=== PATIENT | female | born 1975 | race Caucasian/White ===

== ENCOUNTER 2018-01-15 12:05 | Emergency (ER) | payer BC, OTHER ==
[~2018-01-15] VITALS: Ht 165.1 cm; Wt 62.0 kg
[2018-01-15 12:09] VITALS: TEMP 36.8; Ht 165.1 cm; Wt 62.0 kg
[2018-01-15] MEDS ORDERED: CITA20TA9 PO (12:24)
[2018-01-15] MEDS ORDERED: CETI10TA84 PO (12:24)
[2018-01-15] MEDS ORDERED: XYLOCAINE 1%/SOD BICARB 20 ML VIAL INFIL ONE (12:30)
--- NOTE | 2018-01-15 12:47 | DIAGNOSTIC IMAGING REPORT ---
RIGHT GREAT TOE 3 VIEWS CLINICAL HISTORY: Right great toe pain. Trauma. COMPARISON: None. DISCUSSION: There is an overlying bandage obscuring the fine bony detail. No fractures are visualized. There are no dislocations. No radiopaque foreign bodies are visualized. IMPRESSION: 1. No evidence of acute fracture or dislocation 2. No radiopaque foreign bodies identified. Electronically signed by: Zackary Dale M.D. 01/15/2018 12:46 PM Dictated Date/Time: 01/15/2018 12:45 PM
[2018-01-15] MEDS ORDERED: CEPH500C PO (13:13)
[2018-01-15] MEDS ORDERED: DIPHTHERIA/TETANUS/PERTUSSIS 0.5 ML SYR/VIAL IM. ONE (13:15)
[2018-01-15 14:05] VITALS: BP 125/82; PULSE 79; O2SAT 96
--- NOTE | 2018-01-15 16:22 | EMERGENCY ROOM VISIT NOTE ---
ED Visit Note First contact with patient: 12:12 Chief complaint: Right great toe laceration HPI: This 42-year-old white female presents for evaluation of a laceration on the dorsum of her right great toe. The patient was lifting a blender helper when it accidentally dropped this morning. He landed on her great toe. Bleeding was controlled with pressure. They deny any numbness, tingling, or loss of motion. No other complaints. Tetanus is believed to be up-to-date. Pain is 4/10. A male central sterile supply technician accompanies her today. Supplemental sheet was reviewed and signed. Previous surgeries: None Medical history: Seasonal allergies and depression Current Medications: Celexa and Zyrtec Allergies: NKDA Tetanus: Greater than 10 years Family History: Noncontributory Social History: Employed. No tobacco use. REVIEW OF SYSTEM: HEENT: No dizziness, visual problems, hearing loss, or tinnitus. There is no difficulty swallowing and no oral lesions are present. PULMONARY: No cough, shortness of breath, sputum production or hemoptysis. CARDIOVASCULAR: No chest pain, palpitations, shortness of breath or peripheral edema. GASTROINTESTINAL: No diarrhea, constipation, nausea, vomiting, or abdominal pain. GENITOURINARY: No dysuria, frequency, urgency or nocturia. NEUROLOGIC: No weakness, muscle tenderness, epilepsy or history of neurological problems. MUSCULOSKELETAL: No history of joint tenderness/swelling. SKIN: No rashes or lesions. ENDOCRINE: No history of diabetes, thyroid disorders, or abnormal hair growth. Physical Exam: Vitals: Afebrile. Reviewed and found in patient's chart General: Well-developed, well-nourished, middle-aged white female, in no acute distress. Obvious discomfort. They are sitting on the bed. Alert and oriented. Skin: Warm and dry with good turgor. No rashes. No ecchymosis or erythema. The patient is not diaphoretic. No abrasions. The patient has a 1.5 cm laceration present over the dorsal/lateral aspect of the right great toe. It is just proximal to the IP joint. Bleeding is controlled. No nail involvement. Musculoskeletal: Patient has intact motor function of the great toe for plantar flexion and dorsiflexion. Strength is 4+/5 for resisted dorsiflexion. Neurologic: Gross sensation is intact across the great toe by soft touch. Capillary refill is equal to the other digits. Data: Radiographic imaging obtained today of the right great toe was reviewed by me and read by radiology. No evidence for fracture or retained foreign body. Impression: Right great toe 1.5 cm laceration with tendon exposure Procedure: Informed oral consent was obtained for repair. Great toe was prepped with Betadine and draped with a sterile towel. Area was anesthetized using 5 mL 1% plain buffered lidocaine in a digital block. Digit tourniquet was applied. This was in place for approximately 10-12 minutes. Thorough inspection was performed. She has exposed the extensor tendon but I do not see significant violation or joint space disruption. Wound was irrigated using normal sterile saline under jet spray lavage. Wound was closed using 5-0 nylon. Excellent wound edge approximation was achieved. Hemostasis was achieved. Plan: Patient was educated regarding today's findings. Conservative care measures were discussed. Tetanus was updated using Adacel 0.5 mL IM. Cleanse the wound daily with soap and water and reapply a small amount of bacitracin. Ice and elevate intermittently as needed for discomfort. Tylenol and ibuprofen every 6 hours as needed for pain. Wound care handout was provided. Sutures out in 12 days. She may shower. Avoid soaking or swimming for two weeks. Prescription was provided for Keflex 500 mg 3 times daily 5 days as a prophylaxis against infection due to the tendon exposure. Return to the ER for any acute changes or signs of infection. She was reassured that I do not suspect fracture or joint violation. Current/Historical Medications Scheduled Cephalexin Monohydrate (Keflex), 500 MG PO TID Cetirizine (Zyrtec), 10 MG PO DAILY Citalopram Hydrobromide (Celexa), 1 TAB PO DAILY Allergies Coded Allergies: No Known Allergies (Unverified , 01/15/18) Vital Signs Date Time Temp Pulse Resp B/P (MAP) Pulse Ox O2 Delivery O2 Flow Rate FiO2 01/15/18 14:05 79 16 125/82 96 01/15/18 12:09 36.8 77 16 120/84 99 Medications Administered Medications (Trade) Dose Ordered Sig/Robin Route Start Time Stop Time Status Last Admin Dose Admin Diphtheria/ Pertussis/Tetanus Vacc (Adacel Inj) 0.5 ml ONCE ONCE IM. 01/15/18 13:15 01/15/18 13:16 DC 01/15/18 13:54 0.5 ML Departure Information Impression Primary Impression: Laceration of great toe of right foot Dispostion Home / Self-Care Prescriptions Cephalexin Monohydrate (Keflex) 500 Mg Cap 500 MG PO TID, #15 CAP Prov: Chetan Kam,P.A. 01/15/18 Forms HOME CARE DOCUMENTATION FORM, Days to leave dressing on : 1 Clean wound with;: soap and water Number of times/day to clean wound: 2 Coat wound with: antibiotic ointment Suture removal in how many days: 12 MOTRIN USE, TYLENOL USE, WOUND CARE INSTRUCTIONS, IMPORTANT VISIT INFORMATION Patient Instructions My [facility] Additional Instructions Cleanse the wound daily with soap and water Avoid swimming or soaking for 2 weeks you may shower and wash your foot Tylenol and Motrin every 6 hours as needed for discomfort Sutures out in 12 days Return to the ED for any acute changes or signs of infection Keflex 1 pill 3 times a day 5 days Use a firm soled shoe for weightbearing-open toe sandal may be easiest
== END 2018-01-15 14:01 | disposition home or self-care (01) ==
LOC: C.EDB 12:06 → C.EDD 14:01
DX: S91.111A Laceration without foreign body of right great toe without damage to nail, initial encounter (principal); W20.8XXA Other cause of strike by thrown, projected or falling object, initial encounter